=== PATIENT | male | born 1980 | race Caucasian/White ===

== ENCOUNTER 2017-01-15 20:09 | Emergency (ER) | payer OTHER ==
[2017-01-15] MEDS ORDERED: NO HOME MEDICATION (20:28)
[2017-01-15] MEDS ORDERED: AUGMENTIN 875-1 EAC2 PO (22:30)
== END 2017-01-15 23:02 ==
LOC: EDMED 20:09
PROC: 3E023BZ Introduction of Anesthetic Agent into Muscle, Percutaneous Approach (ICD-10-PCS; principal; 2017-01-15)
DX: S61.253A Open bite of left middle finger without damage to nail, initial encounter (principal); S61.255A Open bite of left ring finger without damage to nail, initial encounter; Z23 Encounter for immunization; W54.0XXA Bitten by dog, initial encounter; Y92.89 Other specified places as the place of occurrence of the external cause